=== PATIENT | female | born 1985 | race Caucasian/White ===

== ENCOUNTER 2022-09-08 07:11 | Emergency (ER) | payer OTHER ==
[~2022-09-08] VITALS: Ht 160 cm; Wt 62.2 kg
[2022-09-08] MEDS ORDERED: LAMI50TA PO (07:22)
[2022-09-08] MEDS ORDERED: LIDOCAINE 5% (LIDODERM) PATCH TD ONE (09:45)
[2022-09-08] MEDS ORDERED: LIDO5DIS41 TOP (09:51)
[2022-09-08] MEDS ORDERED: VALI2TAB PO (09:51)
[2022-09-08] MEDS ORDERED: TIZA4CAP PO (09:56)
[2022-09-08 10:05] VITALS: BP 115/68
[2022-09-08] MEDS ORDERED: METH-1165 PO (12:28)
== END 2022-09-08 10:09 | disposition home or self-care (01) ==
LOC: M ED 07:11
DX: S43.401A Unspecified sprain of right shoulder joint, initial encounter (principal); M54.12 Radiculopathy, cervical region; X50.0XXA Overexertion from strenuous movement or load, initial encounter; Y92.009 Unspecified place in unspecified non-institutional (private) residence as the place of occurrence of the external cause; Y93.H1 Activity, digging, shoveling and raking; Z88.2 Allergy status to sulfonamides; Z88.5 Allergy status to narcotic agent

== ENCOUNTER → 2022-12-09 | Outpatient (CLI) | payer OTHER ==
[~2022-12-09] MED LIST: LAMI50TA PO; LIDO5DIS41 TOP; METH-1165 PO; TIZA4CAP PO; VALI2TAB PO
== END ==
LOC: M PLARAD 09:01
PROVIDERS: ATTEND Nurse Practitioner Adult Health
DX: S46.811A Strain of other muscles, fascia and tendons at shoulder and upper arm level, right arm, initial encounter (principal); X58.XXXA Exposure to other specified factors, initial encounter; Y92.89 Other specified places as the place of occurrence of the external cause; Y93.89 Activity, other specified; Y99.8 Other external cause status

== ENCOUNTER → 2023-02-03 | Outpatient (CLI) | payer OTHER ==
[2023-02-03 17:00] LABS: BASO # 0.1 10^3/uL (0.0-0.2); BASO % 0.8 % (0.0-1.0); EOS # 0.1 10^3/uL (0.0-0.5); EOS % 0.9 % (0.0-3.0); HEMATOCRIT 39.4 % (36.0-47.0); LYMPH # 1.8 10^3/uL (1.5-5.0); LYMPH % 19.8 % (24.0-44.0); MEAN CORPUSCULAR HEMOGLOBIN 30.2 pg (27.0-33.0); MEAN CORPUSCULAR VOLUME 91.6 fl (80.0-96.0); MONO # 0.5 10^3/uL (0.0-0.8); MONO % 6.1 % (2.0-8.0); NEUTROPHILS # 6.4 10^3/uL (1.5-8.5); NEUTROPHILS % 72.1 % (36.0-66.0); PLATELET COUNT, AUTOMATED 293 10^3/uL (150-450); WHITE BLOOD COUNT 8.9 10^3/uL (4.0-10.0)
[2023-02-03 17:11] LABS: ERYTHROCYTE SEDIMENTATION RATE 2 mm/hr (0-20)
[2023-02-03 17:19] LABS: C REACTIVE PROTEIN QUANTITATIV < 0.40 MG/DL (<1.0)
[2023-02-03 17:21] LABS: IRON (FE) 61 UG/DL (50-170); PERCENT SATURATION 19.6 % (13.2-45.0); RHEUMATOID FACTOR QUANT 4.8 IU/ML (<14); TOTAL IRON BINDING CAPACITY 312 UG/DL (250-425)
[2023-02-03 17:22] LABS: ALBUMIN 3.9 G/DL (3.2-5.2); ALKALINE PHOSPHATASE 58 U/L (46-116); ALT/SGPT 15 U/L (7.0-40); AST/SGOT 14 U/L (<34); BILIRUBIN,TOTAL 0.4 MG/DL (0.3-1.2); BLOOD UREA NITROGEN 8 MG/DL (9-23); CALCIUM LEVEL 8.4 MG/DL (8.5-10.1); CARBON DIOXIDE LEVEL 26 MMOL/L (20-31); CHLORIDE LEVEL 106 MMOL/L (98-107); CREATININE FOR GFR 0.67 MG/DL (0.55-1.30); GLOMERULAR FILTRATION RATE > 60.0 (>60); GLUCOSE, FASTING 89 MG/DL (60-100); MAGNESIUM LEVEL 1.6 MG/DL (1.8-2.4); POTASSIUM SERUM 4.1 MMOL/L (3.5-5.1); SODIUM LEVEL 138 MMOL/L (136-145); TOTAL PROTEIN 6.5 G/DL (5.7-8.2)
[2023-02-03 17:24] LABS: FOLATE 11.76 NG/ML (>5.4); FREE T4 1.05 NG/DL (0.89-1.76); THYROID STIMULATING HORMONE 0.426 uIU/ML (0.55-4.78); VITAMIN B12 LEVEL 324 PG/ML (211-911)
[2023-02-08 15:08] LABS: ANA (HEP2) Positive (.); CYCLIC CITRULLINATED PEPTIDE < 1 units (0-19)
== END ==
LOC: M WUC 12:16
PROVIDERS: ATTEND Nurse Practitioner Adult Health
DX: M25.50 Pain in unspecified joint (principal); R59.1 Generalized enlarged lymph nodes; L65.9 Nonscarring hair loss, unspecified; R53.1 Weakness

== ENCOUNTER → 2023-02-21 | Outpatient (CLI) | payer OTHER ==
[2023-02-21 18:07] LABS: FREE T4 1.04 NG/DL (0.89-1.76)
[2023-02-21 18:08] LABS: THYROID STIMULATING HORMONE 1.256 uIU/ML (0.55-4.78)
[2023-02-21 18:19] LABS: THYROGLOBULIN ANTIBODY < 15.0 U/ML (<60.0); THYROID PEROXIDASE ANTIBODY < 28.0 U/ML (<60.0)
[2023-02-23 21:11] LABS: ANA (HEP2) Negative (.)
== END ==
LOC: M WUC 12:00
PROVIDERS: ATTEND Nurse Practitioner Adult Health
DX: R76.0 Raised antibody titer (principal); R94.6 Abnormal results of thyroid function studies

== ENCOUNTER → 2023-04-21 | Outpatient (REF) | payer OTHER | LOC: M LAB REF 16:57 | PROVIDERS: ATTEND Physician Assistant | DX: N39.0 Urinary tract infection, site not specified (principal) ==

== ENCOUNTER → 2023-05-27 | Outpatient (CLI) | payer OTHER | LOC: M WUC 15:47 | PROVIDERS: ATTEND Nurse Practitioner Adult Health | DX: M19.012 Primary osteoarthritis, left shoulder (principal); M75.32 Calcific tendinitis of left shoulder ==

== ENCOUNTER → 2023-06-02 | Outpatient (CLI) | payer OTHER ==
[2023-06-02 18:54] LABS: URIC ACID 4.3 MG/DL (3.1-7.8)
[2023-06-02 18:55] LABS: C REACTIVE PROTEIN QUANTITATIV < 0.40 MG/DL (<1.0)
[2023-06-02 18:58] LABS: RHEUMATOID FACTOR QUANT 5.5 IU/ML (<14)
== END ==
LOC: M WUC 13:26
PROVIDERS: ATTEND Nurse Practitioner Adult Health
DX: M25.50 Pain in unspecified joint (principal); R59.1 Generalized enlarged lymph nodes

== ENCOUNTER → 2023-07-15 | Outpatient (CLI) | payer OTHER | LOC: M RAD 12:05 | PROVIDERS: ATTEND Obstetrics & Gynecology | DX: R10.2 Pelvic and perineal pain (principal); Z90.710 Acquired absence of both cervix and uterus ==

== ENCOUNTER → 2023-08-10 | Outpatient (CLI) | payer OTHER | LOC: M RAD 14:38 | PROVIDERS: ATTEND Physician Assistant | DX: M47.14 Other spondylosis with myelopathy, thoracic region (principal); M47.26 Other spondylosis with radiculopathy, lumbar region; M51.16 Intervertebral disc disorders with radiculopathy, lumbar region; M48.061 Spinal stenosis, lumbar region without neurogenic claudication; M51.24 Other intervertebral disc displacement, thoracic region ==

== ENCOUNTER 2023-09-11 16:04 | Inpatient (IN) | payer OTHER ==
[~2023-09-11] VITALS: Ht 167.6 cm; Wt 58.1 kg
[2023-09-11 17:42] LABS: BASO # 0.1 10^3/uL (0.0-0.2); BASO % 0.7 % (0.0-1.0); EOS % 0.4 % (0.0-3.0); HEMATOCRIT 37.2 % (36.0-47.0); HEMOGLOBIN 13.3 g/dl (12.0-15.5); LYMPH # 1.3 10^3/uL (1.5-5.0); LYMPH % 15.7 % (24.0-44.0); MEAN CORPUSCULAR HEMOGLOBIN 31.3 pg (27.0-33.0); MEAN CORPUSCULAR HGB CONC 35.8 g/dl (32.0-36.5); MEAN CORPUSCULAR VOLUME 87.5 fl (80.0-96.0); MONO # 0.5 10^3/uL (0.0-0.8); MONO % 6.3 % (2.0-8.0); NEUTROPHILS # 6.5 10^3/uL (1.5-8.5); NEUTROPHILS % 76.7 % (36.0-66.0); PLATELET COUNT, AUTOMATED 264 10^3/uL (150-450); RED BLOOD COUNT 4.25 10^6/uL (4.00-5.40); WHITE BLOOD COUNT 8.4 10^3/uL (4.0-10.0)
[2023-09-11 18:15] LABS: ETHYL ALCOHOL (ETHANOL) 0.187 % (0.000-0.010)
[2023-09-11 18:16] LABS: ALBUMIN 4.1 G/DL (3.2-5.2); ALKALINE PHOSPHATASE 55 U/L (46-116); ALT/SGPT 10 U/L (7.0-40); AST/SGOT 18 U/L (<34); BILIRUBIN,DIRECT 0.2 MG/DL (<0.4); BILIRUBIN,TOTAL 0.6 MG/DL (0.3-1.2); BLOOD UREA NITROGEN 8 MG/DL (9-23); CALCIUM LEVEL 8.2 MG/DL (8.5-10.1); CARBON DIOXIDE LEVEL 22 MMOL/L (20-31); CHLORIDE LEVEL 108 MMOL/L (98-107); CPK CREATINE PHOSPHOKINASE 91 U/L (34-145); CREATININE FOR GFR 0.47 MG/DL (0.55-1.30); GLOMERULAR FILTRATION RATE > 60.0 (>60); GLUCOSE, FASTING 88 MG/DL (60-100); POTASSIUM SERUM 3.8 MMOL/L (3.5-5.1); SALICYLATE LEVEL < 3.0 MG/DL (<30); SODIUM LEVEL 138 MMOL/L (136-145); TOTAL PROTEIN 7.1 G/DL (5.7-8.2)
[2023-09-11 18:17] LABS: OSMOLALITY SERUM 332 MOSM/KG (275-295)
[2023-09-11 18:19] LABS: THYROID STIMULATING HORMONE 3.699 uIU/ML (0.55-4.78)
[2023-09-11 18:20] LABS: HCG, SERUM QUALITATIVE NEGATIVE (NEGATIVE)
[2023-09-11 19:44] LABS: BARBITURATES URINE NEGATIVE (NEGATIVE); BENZODIAZEPINES URINE NEGATIVE (NEGATIVE); COCAINE METABOLITE URINE NEGATIVE (NEGATIVE); METHADONE URINE NEGATIVE (NEGATIVE); PHENCYCLIDINE URINE NEGATIVE (NEGATIVE)
[2023-09-11 19:49] LABS: AMPHETAMINES LEVEL URINE POSITIVE (NEGATIVE); CANNABINOIDS URINE POSITIVE (NEGATIVE); OPIATES URINE POSITIVE (NEGATIVE)
[2023-09-11] MEDS ORDERED: ONDANSETRON 4MG 2ML VIAL IV ONE (20:45)
[2023-09-11] MEDS: THIAMINE 100 MG TAB PO SCH (21:00)
[2023-09-11] MEDS ORDERED: HOME MED LIST COMPLETE! XX SCH (23:40)
[2023-09-12] MEDS ORDERED: traZODone 50 MG TAB PO PRN
[2023-09-12] MEDS ORDERED: MAALOX 30 ML SUSP *UDC PO PRN
[2023-09-12] MEDS ORDERED: MOM 30ML SUSPENSION UDC PO PRN
[2023-09-12] MEDS ORDERED: LORazepam 2 MG TAB PO PRN
[2023-09-12] MEDS ORDERED: OLANZapine 5 MG TAB PO PRN
[2023-09-12] MEDS ORDERED: IBUPROFEN 400MG TAB PO PRN
[2023-09-12] MEDS ORDERED: MED REC CURRENTLY UNOBTAINABLE XX SCH (00:05)
[2023-09-12 03:37] VITALS: BP 111/56; TEMP 98.4; O2SAT 97
[2023-09-12 06:30] VITALS: BP 111/58; TEMP 99.1; O2SAT 97
[2023-09-12] MEDS: FOLIC ACID 1MG TAB PO SCH (08:43)
[2023-09-12] MEDS: THIAMINE 100 MG TAB PO SCH ×2 (08:43→19:46)
[2023-09-12] MEDS: MULTIVITAMINS/MINERALS THERAP 1 TAB PO SCH (08:43)
[2023-09-12] MEDS ORDERED: NICOTINE 21MG/24HR 1 EA TRANSDERMAL TD PRN (09:00)
[2023-09-12] MEDS ORDERED: ADDE20TA PO (14:37)
[2023-09-12 16:15] VITALS: BP 109/65; TEMP 97.8; O2SAT 98
[2023-09-12] MEDS: ACETAMINOPHEN TAB 650MG DOSE (2X325MG) PO PRN (19:47)
[2023-09-12] MEDS: diphenhydrAMINE 25MG CAP PO PRN (19:47)
[2023-09-12 22:38] VITALS: BP 122/63
[2023-09-13 06:52] VITALS: BP 83/50; TEMP 98.3; O2SAT 95
[2023-09-13 06:57] VITALS: BP 106/70
[2023-09-13 07:02] VITALS: BP 106/70
[2023-09-13] MEDS: MULTIVITAMINS/MINERALS THERAP 1 TAB PO SCH (08:48)
[2023-09-13] MEDS: THIAMINE 100 MG TAB PO SCH ×2 (08:48→20:29)
[2023-09-13] MEDS: FOLIC ACID 1MG TAB PO SCH (08:48)
[2023-09-13 18:25] VITALS: BP 133/74; TEMP 98.1
[2023-09-13] MEDS: diphenhydrAMINE 25MG CAP PO PRN (20:54)
[2023-09-13] MEDS: ACETAMINOPHEN TAB 650MG DOSE (2X325MG) PO PRN (20:56)
[2023-09-14 06:46] VITALS: BP 117/67; TEMP 97.8; O2SAT 100
[2023-09-14] MEDS: MULTIVITAMINS/MINERALS THERAP 1 TAB PO SCH (09:17)
[2023-09-14] MEDS: THIAMINE 100 MG TAB PO SCH (09:17)
[2023-09-14] MEDS: FOLIC ACID 1MG TAB PO SCH (09:17)
[2023-09-14] MEDS: ACETAMINOPHEN TAB 650MG DOSE (2X325MG) PO PRN (11:30)
== END 2023-09-14 15:43 | disposition home or self-care (01) | DRG 881 ==
LOC: EDBD 16:04 → M ED 16:04 → M ED INP 23:58 → M PSY 09-12 03:28
PROVIDERS: ADMIT Student in an Organized Health Care Education/Training Program; ATTEND Student in an Organized Health Care Education/Training Program
DX: F32.A Depression, unspecified (principal); F41.9 Anxiety disorder, unspecified; F12.10 Cannabis abuse, uncomplicated; F10.10 Alcohol abuse, uncomplicated; F60.3 Borderline personality disorder; M54.2 Cervicalgia; T43.212A Poisoning by selective serotonin and norepinephrine reuptake inhibitors, intentional self-harm, initial encounter; M25.512 Pain in left shoulder; F43.20 Adjustment disorder, unspecified; F11.10 Opioid abuse, uncomplicated; F15.10 Other stimulant abuse, uncomplicated; Z88.6 Allergy status to analgesic agent; Z79.899 Other long term (current) drug therapy; Z88.5 Allergy status to narcotic agent; Z91.51 Personal history of suicidal behavior; Z88.2 Allergy status to sulfonamides

== ENCOUNTER → 2023-09-21 | Outpatient (CLI) | payer OTHER ==
[~2023-09-21] MED LIST changes: +ADDE20TA PO
[2023-09-21 13:34] LABS: HEMATOCRIT 36.4 % (36.0-47.0); HEMOGLOBIN 12.5 g/dl (12.0-15.5); MEAN CORPUSCULAR HEMOGLOBIN 30.9 pg (27.0-33.0); MEAN CORPUSCULAR HGB CONC 34.3 g/dl (32.0-36.5); MEAN CORPUSCULAR VOLUME 90.1 fl (80.0-96.0); PLATELET COUNT, AUTOMATED 299 10^3/uL (150-450); RED BLOOD COUNT 4.04 10^6/uL (4.00-5.40); WHITE BLOOD COUNT 9.5 10^3/uL (4.0-10.0)
[2023-09-21 13:45] LABS: APPEARANCE, URINE CLEAR (CLEAR); BACTERIA, URINE AUTO NEGATIVE (NEGATIVE); BILIRUBIN, URINE AUTO NEGATIVE (NEGATIVE); BLOOD, URINE BLOOD NEGATIVE (NEGATIVE); COLOR, URINE YELLOW (YELLOW); GLUCOSE, URINE (UA) AUTO NEGATIVE (NEGATIVE); KETONE, URINE AUTO NEGATIVE (NEGATIVE); LEUKOCYTE ESTERASE, URINE AUTO NEGATIVE (NEGATIVE); MUCUS, URINE SMALL (NEGATIVE); NITRITE, URINE AUTO NEGATIVE (NEGATIVE); PROTEIN, URINE AUTO NEGATIVE (NEGATIVE); RBC, URINE AUTO 0 /HPF (0-3); SPECIFIC GRAVITY URINE AUTO 1.021 (1.002-1.035); SQUAMOUS EPITHELIAL CELL UR AU 2 /HPF (0-6); UROBILINOGEN, URINE AUTO 0.2 mg/dL (0.0-2.0); WBC, URINE AUTO 1 /HPF (0-3)
[2023-09-21 13:56] LABS: ALBUMIN 3.8 G/DL (3.2-5.2); ALKALINE PHOSPHATASE 52 U/L (46-116); ALT/SGPT 14 U/L (7.0-40); AST/SGOT 12 U/L (<34); BILIRUBIN,TOTAL 0.8 MG/DL (0.3-1.2); BLOOD UREA NITROGEN 10 MG/DL (9-23); CALCIUM LEVEL 9.2 MG/DL (8.5-10.1); CARBON DIOXIDE LEVEL 29 MMOL/L (20-31); CHLORIDE LEVEL 103 MMOL/L (98-107); CREATININE FOR GFR 0.71 MG/DL (0.55-1.30); GLOMERULAR FILTRATION RATE > 60.0 (>60); GLUCOSE, FASTING 86 MG/DL (60-100); POTASSIUM SERUM 3.5 MMOL/L (3.5-5.1); SODIUM LEVEL 136 MMOL/L (136-145); TOTAL PROTEIN 6.8 G/DL (5.7-8.2)
== END ==
LOC: M LAB 13:04
PROVIDERS: ATTEND Physician Assistant Surgical
DX: M75.52 Bursitis of left shoulder (principal); S43.102D Unspecified dislocation of left acromioclavicular joint, subsequent encounter; S43.432D Superior glenoid labrum lesion of left shoulder, subsequent encounter